=== PATIENT | female | born 1960 | race Caucasian/White ===

== ENCOUNTER 2016-10-07 11:32 | Day surgery (SDCO) | payer OTHER ==
[2016-10-07 12:21] LABS: BASOPHIL 0.5 % (0-2); EOSINOPHIL 0.7 % (0-5); HCT 32.2 % (37.0-47.0); HGB 10.3 g/dl (12.5-16.0); LYMPHOCYTE 20.6 % (15-48); MCH 21.4 pg (25.0-31.0); MCV 66.8 fL (78.0-100.0); MONOCYTE 7.2 % (0-12); MPV 9.9 fL (6.0-9.5); PLT 283 K/uL (150-400); RBC 4.82 M/uL (4.20-5.40); WBC 4.4 K/uL (4.0-10.5)
[2016-10-07 12:39] LABS: ALBUMIN 4.5 g/dL (3.5-5.0); BILIRUBIN - TOTAL 0.5 mg/dL (0.1-1.0); CREATININE 1.1 mg/dL (0.5-1.0); GLOBULIN (CALCULATION) 2.2 g/dL (2.2-4.2); POTASSIUM 4.3 mmol/L (3.5-5.1); TOTAL PROTEIN 6.7 g/dL (6.4-8.3)
[2016-10-07 14:47] LABS: RETICULOCYTE COUNT 1.4 % (1.0-2.0)
[2016-10-07 15:05] LABS: IRON 22 ug/dL (44-196); IRON % SATURATION 5 %SAT (20-50); TIBC (TOTAL IRON + UIBC) 484 U/L (228-428); UIBC 462 ug/dL (112-346)
[2016-10-07 15:25] LABS: FOLIC ACID (SERUM) 14.2 ng/mL (4.4-31.0)
== END 2016-10-08 10:25 | disposition home or self-care (01) ==
LOC: FER 11:32 → FICU 13:10
PROVIDERS: Internal Medicine; ADMIT Internal Medicine Cardiovascular Disease
DX: I48.91 Unspecified atrial fibrillation (principal); I48.92 Unspecified atrial flutter; I47.1 Supraventricular tachycardia; D50.9 Iron deficiency anemia, unspecified; Z85.828 Personal history of other malignant neoplasm of skin; Z83.6 Family history of other diseases of the respiratory system; Z83.2 Family history of diseases of the blood and blood-forming organs and certain disorders involving the immune mechanism; Z82.49 Family history of ischemic heart disease and other diseases of the circulatory system; Z98.890 Other specified postprocedural states
CPT/HCPCS: 36415; 71010; 80053; 82607; 82728; 82746; 83540; 83550; 84443; 84484; 85025; 85044; 93005; G0378